=== PATIENT | male | born 1995 | race American Indian/Alaskan Native ===

== ENCOUNTER 2016-07-27 03:41 | Emergency (ER) | payer SELFPAY ==
[2016-07-27 03:47] VITALS: BP 123/87
[2016-07-27] MEDS ORDERED: ROCEPHIN IM ONE (04:10)
[2016-07-27] MEDS ORDERED: XYLOCAINE 1% MPF 5 mL INFILTRATI ONE (04:10)
[2016-07-27] MEDS ORDERED: ZITHROMAX PO ONE (04:11)
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
[2016-07-27 04:58] LABS: Bilirubin,Urine NEG (Negative); Blood,Urine NEG (Negative); Ketones,Urine NEG (Negative); Leukocyte Esterase,Urine TR (Negative); Mucus,Urine FEW /HPF; Nitrite,Urine NEG (Negative); Protein,Urine <15 mg/dL mg/dL (Negative); Urobilinogen,Urine < 2.0 mg/dL (<2.0)
== END 2016-07-27 05:40 | disposition home or self-care (01) ==
LOC: ED 03:41
DX: N39.0 Urinary tract infection, site not specified (principal); F17.200 Nicotine dependence, unspecified, uncomplicated; F12.10 Cannabis abuse, uncomplicated
CPT/HCPCS: 81001; 87591; 96372; 99283; J0696

== ENCOUNTER 2016-08-23 00:13 | Emergency (ER) | payer SELFPAY ==
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
[2016-08-23 03:38] LABS: Bilirubin,Urine NEG (Negative); Blood,Urine NEG (Negative); Ketones,Urine NEG (Negative); Leukocyte Esterase,Urine NEG (Negative); Mucus,Urine FEW /HPF; Nitrite,Urine NEG (Negative); Protein,Urine <15 mg/dL mg/dL (Negative); Urobilinogen,Urine < 2.0 mg/dL (<2.0); WBC,Urine < 1.0 /HPF (0.0-6.0)
[2016-08-23] MEDS ORDERED: XYLOCAINE 1% MPF 5 mL INFILTRATI ONE (03:49)
[2016-08-23] MEDS ORDERED: ZITHROMAX PO ONE (03:49)
[2016-08-23] MEDS ORDERED: ROCEPHIN IM ONE (03:49)
[2016-08-23 04:14] VITALS: BP 113/65
== END 2016-08-23 04:29 | disposition home or self-care (01) ==
LOC: ED 00:13
DX: R30.0 Dysuria (principal); F17.210 Nicotine dependence, cigarettes, uncomplicated; F12.10 Cannabis abuse, uncomplicated; Z20.2 Contact with and (suspected) exposure to infections with a predominantly sexual mode of transmission
CPT/HCPCS: 81001; 87591; 96372; 99283; J0696